=== PATIENT | female | born 2000 | race Caucasian/White ===

== ENCOUNTER 2025-05-01 10:08 | Day surgery (SDC) | payer OTHER ==
[2025-05-01 10:48] VITALS: BMI 29.1
[2025-05-01] MEDS ORDERED: hydrALAZINE 20 MG/ML VIAL SLOW IVP PRN (11:05)
[2025-05-01 11:26] LABS: Fetal Membranes Rupture No Membranes Rupture (No Rupture)
== END 2025-05-01 13:05 | disposition home or self-care (01) ==
LOC: CSHLD/OP 10:08
PROVIDERS: ATTEND Obstetrics & Gynecology
DX: O47.1 False labor at or after 37 completed weeks of gestation (principal); Z3A.37 37 weeks gestation of pregnancy; Z79.899 Other long term (current) drug therapy
CPT/HCPCS: 84112; 87480; 87510; 87660

== ENCOUNTER 2025-05-15 06:00 | Inpatient (IN) | payer OTHER ==
[2025-05-15 06:30] VITALS: BMI 29.4
[2025-05-15] MEDS ORDERED: Ondansetron PF 4 MG/2 ML Vial IVP PRN ×2 (07:04→09:11)
[2025-05-15] MEDS ORDERED: hydrALAZINE 20 MG/ML VIAL SLOW IVP PRN ×2 (07:04→17:00)
[2025-05-15] MEDS ORDERED: Lidocaine 1% (PF) 30 ML VIAL SC PRN (07:04)
[2025-05-15] MEDS ORDERED: Carboprost 250 MCG/ML AMP IM PRN (07:05)
[2025-05-15] MEDS ORDERED: Methylergonovine 0.2 MG/ML VIAL IM PRN (07:05)
[2025-05-15] MEDS ORDERED: Acetaminophen 500 MG TAB PO PRN (07:05)
[2025-05-15] MEDS ORDERED: Ibuprofen 800 MG TAB PO PRN (07:05)
[2025-05-15] MEDS ORDERED: Tranexamic Acid 1,000 MG/10 ML VIAL IVP PRN (07:05)
[2025-05-15] MEDS ORDERED: Diphenoxylate HCl/Atropine Tablet PO PRN ×2 (07:05)
[2025-05-15 07:13] LABS: Hematocrit 31.1 % (34.9-44.5); Hemoglobin 11.1 g/dL (12.0-15.5); Mean Corpuscular Hemoglobin 31.1 pg (27.0-33.0); Mean Corpuscular Volume 87.1 fL (81.6-98.3); Platelet Count 158 10x3/uL (150-450); Red Blood Cell (RBC) Count 3.57 10x6/uL (3.90-5.03); White Blood Cell (WBC) Count 10.97 10x3/uL (3.5-10.5)
[2025-05-15] MEDS ORDERED: Oxytocin 30 units/NS 500 ML 500 ML IV SCH (07:15)
[2025-05-15 07:48] LABS: Hep B Surf Ag - L&D Non-Reactive S/CO (NonReactive)
[2025-05-15] MEDS: Oxytocin 30 units/NS 500 ML 500 ML IV SCH (08:07)
[2025-05-15 08:17] LABS: Syphilis Antibody Index 0.12 S/CO (<1.00 Non-Reactive)
[2025-05-15] MEDS: fentaNYL/Ropivacaine Epidural 100 ML ONE (08:56)
[2025-05-15] MEDS ORDERED: Acetaminophen 325 MG TAB PO PRN (09:11)
[2025-05-15] MEDS ORDERED: diphenhydrAMINE 50 MG/ML VIAL IVP PRN (09:11)
[2025-05-15] MEDS ORDERED: Communication Order-Pharmacy FS SCH (09:15)
[2025-05-15] MEDS ORDERED: fentaNYL 2 mcg/Ropivacaine 0.2% Epidural 100 ML CADD EPIDURAL SCH (09:15)
[2025-05-15] MEDS ORDERED: Bisacodyl 10 MG SUPP PR PRN (17:00)
[2025-05-15] MEDS ORDERED: Preparation H Ointment 28 GM TUBE PR PRN (17:00)
[2025-05-15] MEDS ORDERED: Lanolin Ointment 7 GM TUBE TOP PRN (17:00)
[2025-05-15] MEDS ORDERED: Milk Of Magnesia 30 ML UDCUP PO PRN (17:00)
[2025-05-15] MEDS: Ferrous Sulfate 325 MG TAB PO SCH (17:48)
[2025-05-15] MEDS ORDERED: Bupivacaine/Epinephrine 0.25% 30 ML VIAL ONE (19:15)
[2025-05-15] MEDS: Ibuprofen 800 MG TAB PO SCH (21:00)
[2025-05-16 11:31] VITALS: BP 114/56; TEMP 98.5
== END 2025-05-16 18:30 | disposition home or self-care (01) | DRG 807 ==
LOC: CSHLD 06:08 → CSHPP 17:40
PROVIDERS: ADMIT Family Medicine; ATTEND Family Medicine
PROC: 10E0XZZ Delivery of Products of Conception, External Approach (ICD-10-PCS; principal; 2025-05-15)
PROC: 10907ZC Drainage of Amniotic Fluid, Therapeutic from Products of Conception, Via Natural or Artificial Opening (ICD-10-PCS; 2025-05-15)
PROC: 0UQMXZZ Repair Vulva, External Approach (ICD-10-PCS; 2025-05-15)
DX: O99.02 Anemia complicating childbirth (principal); Z37.0 Single live birth; D50.9 Iron deficiency anemia, unspecified; O99.344 Other mental disorders complicating childbirth; O69.81X0 Labor and delivery complicated by cord around neck, without compression, not applicable or unspecified; Z3A.39 39 weeks gestation of pregnancy; O71.82 Other specified trauma to perineum and vulva
CPT/HCPCS: 51702; 85027; 86780; 86850; 86900; 86901; 87340; J2590